=== PATIENT | female | born 1955 | race African-American/Black ===

== ENCOUNTER 2016-08-07 14:07 | Emergency (ER) | payer MEDICARE, MEDICAID ==
[2016-08-07] MEDS ORDERED: ONDANSETRON 4 MG TAB.RAPDIS SL ONE (14:23)
[2016-08-07] MEDS ORDERED: HYDROCODONE/ACETAMINOPHEN 5-325 MG TABLET PO ONE (14:23)
--- NOTE | 2016-08-07 14:24 | ER Document Report ---
ED Medical Screen (RME) - General Chief Complaint: Abdominal Pain Stated Complaint: ABDOMINAL PAIN, SORE THROAT Time Seen by Provider: 08/07/16 14:23 Mode of Arrival: Ambulatory Information source: Patient TRAVEL OUTSIDE OF THE [place] IN LAST 30 DAYS: No - HPI Patient complains to provider of: Abdominal pain with nausea and diarrhea Onset: Other - 4-5 days Onset/Duration: Persistent Quality of pain: Achy Notes: 08/07/16 14:23 Patient is a 61-year-old female presenting to the emergency room complaining of abdominal pain with nausea this been going on for for 5 days, she reports 2 episodes of diarrhea as well, denies any dysuria, no vomiting, no fever, no vaginal discharge or bleeding, states at home she tried taking Gas-X, as well as Tea and she even drank some vinegar in hopes to make her pain go away but has had no relief - Related Data Allergies/Adverse Reactions: latex [Latex] Allergy (Intermediate, Verified 08/07/16 14:21) Generalized Itching Sulfa (Sulfonamide Antibiotics) Allergy (Intermediate, Verified 08/07/16 14:21) Pruritis IVP Dye Allergy (Intermediate, Uncoded 08/07/16 14:21) Swelling of tongue Past Medical History - Past Medical History Cardiac Medical History: Reports: Hx Heart Attack - Silent [place], Hx Hypertension Denies: Hx Coronary Artery Disease Pulmonary Medical History: Reports: Hx Asthma, Hx Pneumonia Denies: Hx Bronchitis, Hx COPD Neurological Medical History: Reports: Hx Migraine. Denies: Hx Cerebrovascular Accident, Hx Seizures Endocrine Medical History: Reports: Hx Diabetes Mellitus Type 2 Renal/ Medical History: Denies: Hx Peritoneal Dialysis Musculoskeltal Medical History: Reports Hx Arthritis, Reports Hx Fibromyalgia Past Surgical History: Denies: Hx Hysterectomy, Hx Pacemaker - Immunizations Hx Diphtheria, Pertussis, Tetanus Vaccination: Yes Physical Exam - Vital signs Vitals: Temp Pulse Resp BP Pulse Ox 98.4 F 76 16 122/61 97 08/07/16 14:10 08/07/16 14:10 08/07/16 14:10 08/07/16 14:10 08/07/16 14:10 Course - Vital Signs Vital signs: Temp Pulse Resp BP Pulse Ox 98.4 F 76 16 122/61 97 08/07/16 14:10 08/07/16 14:10 08/07/16 14:10 08/07/16 14:10 08/07/16 14:10
[2016-08-07 14:39] LABS: APPEARANCE,URINE CLEAR; BILIRUBIN,URINE NEGATIVE (NEGATIVE); GLUCOSE, URINE >=500 mg/dL (NEGATIVE); KETONES,URINE NEGATIVE (NEGATIVE); LEUKOCYTE ESTERASE,URINE NEGATIVE (NEGATIVE); NITRITE,URINE NEGATIVE (NEGATIVE); PROTEIN,URINE NEGATIVE (NEGATIVE); URINE SPECIFIC GRAVITY 1.024; UROBILINOGEN,URINE NEGATIVE mg/dL (<2.0)
[2016-08-07 15:15] LABS: ABSOLUTE BASOPHILS # (AUTO) 0.1 10^3/uL (0.0-0.2); ABSOLUTE EOSINOPHILS # (AUTO) 0.2 10^3/uL (0.0-0.6); ABSOLUTE LYMPHOCYTES (AUTO) 3.3 10^3/uL (0.5-4.7); ABSOLUTE MONOCYTES (AUTO) 0.5 10^3/uL (0.1-1.4); ABSOLUTE NEUT (AUTO) 3.1 10^3/uL (1.7-8.2); EOSINOPHILS % (AUTO) 2.8 % (0-6); HEMATOCRIT 37.4 % (36.0-47.0); HEMOGLOBIN 11.8 g/dL (12.0-15.5); MEAN CORPUSCULAR HEMOGLOBIN 24.5 pg (27.0-33.4); MEAN CORPUSCULAR HGB CONC 31.6 g/dL (32.0-36.0); MEAN CORPUSCULAR VOLUME 77 fl (80-97); MONOCYTES % (AUTO) 6.5 % (3-13); RED BLOOD COUNT 4.82 10^6/uL (3.72-5.28); RED CELL DISTRIBUTION WIDTH 17.2 % (11.5-14.0); SEGMENTED NEUTROPHILS % (AUTO) 43.7 % (42-78); WHITE BLOOD COUNT 7.1 10^3/uL (4.0-10.5)
[2016-08-07 15:37] LABS: ALANINE AMINOTRANSFERASE 25 U/L (9-52); ALBUMIN 2.8 g/dL (3.5-5.0); ALKALINE PHOSPHATASE 55 U/L (38-126); ANION GAP 10 (5-19); ASPARTATE AMINO TRANSFERASE 22 U/L (14-36); BILIRUBIN,DIRECT 0.3 mg/dL (0.0-0.4); BILIRUBIN,TOTAL 0.4 mg/dL (0.2-1.3); BLOOD UREA NITROGEN 9 mg/dL (7-20); CARBON DIOXIDE 20 mmol/L (22-30); CHLORIDE 115 mmol/L (98-107); CREATININE RESULT 0.52 mg/dL (0.52-1.25); GLUCOSE 99 mg/dL (75-110); LIPASE 84.8 U/L (23-300); POTASSIUM 3.8 mmol/L (3.6-5.0); SODIUM 145.2 mmol/L (137-145); TOTAL PROTEIN 5.9 g/dL (6.3-8.2)
[2016-08-07 15:48] LABS: CALCIUM 6.9 mg/dL (8.4-10.2)
--- NOTE | 2016-08-07 16:42 | ER Document Report ---
ED GI/ - General Mode of Arrival: Ambulatory Information source: Patient TRAVEL OUTSIDE OF THE [place] IN LAST 30 DAYS: No <AJ LARA - Last Filed: 08/07/16 19:41> <HARLEY PETERS - Last Filed: 08/07/16 22:02> - General Chief Complaint: Abdominal Pain Stated Complaint: ABDOMINAL PAIN, SORE THROAT Time Seen by Provider: 08/07/16 14:23 Notes: 61-year-old post menopausal, DM, hypertensive, hypothyroid, non-smoker female complaining of lower quadrant pain that is intermittent and right flank pain that is intermittent with increased urine frequency since last week. Have nausea without vomiting. Diarrhea yesterday. Has had some chills and sweats for 2 days. No hx Ulcerative colitis, or diverticulitis. She had a normal colonoscopy several years ago. (AJ LARA) - Related Data Allergies/Adverse Reactions: latex [Latex] Allergy (Intermediate, Verified 08/07/16 14:21) Generalized Itching Sulfa (Sulfonamide Antibiotics) Allergy (Intermediate, Verified 08/07/16 14:21) Pruritis IVP Dye Allergy (Intermediate, Uncoded 08/07/16 14:21) Swelling of tongue Past Medical History - General Information source: Patient - Social History Smoking Status: Former Smoker Chew tobacco use (# tins/day): No Frequency of alcohol use: None Drug Abuse: None Lives with: Family Family History: Reviewed & Not Pertinent - Past Medical History Cardiac Medical History: Reports: Hx Heart Attack - Silent [place], Hx Hypertension Pulmonary Medical History: Reports: Hx Asthma, Hx Pneumonia Neurological Medical History: Reports: Hx Migraine Endocrine Medical History: Reports: Hx Diabetes Mellitus Type 2 Renal/ Medical History: Denies: Hx Peritoneal Dialysis Musculoskeltal Medical History: Reports Hx Arthritis, Reports Hx Fibromyalgia Past Surgical History: Reports: Hx Cardiac Catheterization, Hx Genitourinary Surgery - bladder tacking, c section - Immunizations Hx Diphtheria, Pertussis, Tetanus Vaccination: Yes Hx Pneumococcal Vaccination: 02/20/10 <AJ LARA - Last Filed: 08/07/16 19:41> Review of Systems - Review of Systems Constitutional: No symptoms reported EENT: No symptoms reported Cardiovascular: No symptoms reported Respiratory: No symptoms reported Gastrointestinal: See HPI Genitourinary: No symptoms reported Female Genitourinary: No symptoms reported Musculoskeletal: No symptoms reported Skin: No symptoms reported Hematologic/Lymphatic: No symptoms reported Neurological/Psychological: No symptoms reported <AJ LARA - Last Filed: 08/07/16 19:41> Physical Exam - Vital signs Interpretation: Normal - General General appearance: Appears well, Alert In distress: None - HEENT Head: Normocephalic, Atraumatic Eyes: Normal Conjunctiva: Normal Pupils: PERRL Pharynx: Normal Neck: Supple. No: Lymphadenopathy - Respiratory Respiratory status: No respiratory distress Chest status: Nontender Breath sounds: Normal Chest palpation: Normal - Cardiovascular Rhythm: Regular Heart sounds: Normal auscultation Murmur: No - Abdominal Inspection: Normal Distension: No distension Bowel sounds: Normal Tenderness: Tender - right lower pelvic. No: McBurney's point Organomegaly: No organomegaly. No: Hepatomegaly, Splenomegaly - Back Back: Normal, Tender - right flank - Extremities General upper extremity: Normal inspection, Nontender, Normal color, Normal ROM , Normal temperature General lower extremity: Normal inspection, Nontender, Normal color, Normal ROM , Normal temperature, Normal weight bearing. No: Nguyen's sign - Neurological Neuro grossly intact: Yes Cognition: Normal Orientation: AAOx4 Geetha Coma Scale Eye Opening: Spontaneous [place] Coma Scale Verbal: Oriented Geetha Coma Scale Motor: Obeys Commands [place] Coma Scale Total: 15 Speech: Normal Motor strength normal: LUE, RUE, LLE, RLE Sensory: Normal - Psychological Associated symptoms: Normal affect, Normal mood - Skin Skin Temperature: Warm Skin Moisture: Dry Skin Color: Normal Skin irregularity: negative: Rash <AJ LARA - Last Filed: 08/07/16 19:41> Course - Laboratory Result Diagrams: 08/07/16 15:03 08/07/16 15:03 <AJ LARA - Last Filed: 08/07/16 19:41> - Laboratory Result Diagrams: 08/07/16 15:03 08/07/16 15:03 <HARLEY PETERS - Last Filed: 08/07/16 22:02> - Re-evaluation Re-evalutation: 08/07/16 17:45 CT scan showed a 3.6 cm mass on her uterus which radiologist recommends getting any ultrasound which I have done and I will explain this to the patient. 08/07/16 19:00 Shows fibroids that correlate with the CT finding. No change since 200608/07/16 19:41 Dr. Peters examined the patient upon my request since she is pot tender although the tenderness seems to be in the right groin at this time and hurt more with hip movement and getting up and walking. I believe that this is musculoskeletal and Dr. Peters agrees. Been visiting here driving and taking care of her grandchildren. She feels like she has been more physically active but no specific injury that she can remember to her back or hip. She has been told that she has arthritis in the past. I advised her to return to the emergency room for any increased pain, fever, nausea, vomiting, diarrhea. She can take Tylenol and use heat to her sore areas. (AJ LARA) 08/07/16 22:01 I did personally seen and examined this patient, I did review pertinent parts of the history with the patient. She is complaining of some right-sided abdominal pain however on further examination she does indicate her right groin where there is no hernia on examination. She is tender palpation along the right inguinal fold, no adenopathy is noted. She is able to bear weight without difficulty although pain worsens with ambulation. At present I feel this may be musculoskeletal in nature, I agree with acetaminophen and warm compresses for pain. Patient will return for fevers or new or concerning symptoms. (HARLEY PETERS) - Vital Signs Vital signs: Temp Pulse Resp BP Pulse Ox 98.2 F 67 14 114/79 97 08/07/16 19:59 08/07/16 19:59 08/07/16 19:59 08/07/16 19:59 08/07/16 19:59 - Laboratory Laboratory results interpreted by me: 08/07/16 08/07/16 08/07/16 14:25 15:03 15:03 Hgb 11.8 L MCV 77 L MCH 24.5 L MCHC 31.6 L RDW 17.2 H Lymphocytes % 46.0 H Sodium 145.2 H Chloride 115 H Carbon Dioxide 20 L Calcium 6.9 L* Total Protein 5.9 L Albumin 2.8 L Urine Glucose (UA) >=500 H Discharge <AJ LARA - Last Filed: 08/07/16 19:41> <HARLEY PETERS - Last Filed: 08/07/16 22:02> - Discharge Clinical Impression: right groin pain, uterine fibroids, abdominal pain Low back pain Qualifiers: Chronicity: acute Back pain laterality: right Sciatica presence: without sciatica Qualified Code(s): M54.5 - Low back pain Condition: Good Disposition: HOME, SELF-CARE Instructions: Abdominal Pain ([facility]), Low Back Pain ([facility]), Acetaminophen, Warm Packs ([facility]) Additional Instructions: warm compress to sore areas you have urterine fibroids tylenol Return to the emergency room for increased pain, fever, nausea, vomiting, diarrhea, or any concerns Please complete the patient satisfaction survey if you get one, and return it.. If you do not receive a survey, then you can go to the [facility] website, [email or web address] and place your comments about your very good care. Thank you very much. It was a pleasure being your medical provider today.
--- NOTE | 2016-08-07 17:07 | RADIOLOGY REPORT (SQ) ---
EXAM DESCRIPTION: CT LTD RENAL STONE PROTOCOL ON COMPLETED DATE/TIME: 08/07/2016 4:28 pm REASON FOR STUDY: right flank and RLQ pain COMPARISON: None. TECHNIQUE: CT scan of the abdomen and pelvis performed without intravenous or oral contrast. Images reviewed with lung, soft tissue, and bone windows. Reconstructed coronal and sagittal MPR images revi ewed. All images stored on PACS. All CT scanners at this facility use dose modulation, iterative reconstruction, and/or weight based d osing when appropriate to reduce radiation dose to as low as reasonably achievable (ALARA). [facility]: Dose Right [facility]: CareDose [facility]: Dose Right [facility]: Teradose 4D [facility]: OurStage RADIATION DOSE: 13.45mGy. LIMITATIONS: None. FINDINGS: LOWER CHEST: No significant findings. No nodules or infiltrates. NON-CONTRASTED LIVER, SPLEEN, ADRENALS: Evaluation limited by lack of IV contrast. No identified sign ificant masses. PANCREAS: No masses. No peripancreatic inflammatory changes. GALLBLADDER: No identified stones by CT criteria. No inflammatory changes to suggest cholecystitis. RIGHT KIDNEY AND URETER: No suspicious masses. Assessment limited by lack of IV contrast. No signif icant calcifications. Multiple calcifications are noted within at vessel and adjacent to the ureter but appear to be vascular calcifications. No hydronephrosis or hydroureter. LEFT KIDNEY AND URETER: No suspicious masses. Assessment limited by lack of IV contrast. Lower pole cyst. No significant calcifications. No hydronephrosis or hydroureter. AORTA AND RETROPERITONEUM: No aneurysm. No retroperitoneal masses or adenopathy. BOWEL AND PERITONEAL CAVITY: No obvious masses or inflammatory changes. No free fluid. APPENDIX: Not visualized. No inflammatory changes seen the right lower quadrant. No dilated blind-e nding fluid-filled loops of bowel. PELVIS, BLADDER, AND ABDOMINAL WALL:There is a 2.3 cm rounded lesion seen along the anterior surface of the uterus slightly to the right with central hypo attenuation. This could represent a fibroid wi th cystic degeneration or other lesion. This is not fully evaluated on this study. No pelvic adenop athy identified. Urinary bladder is unremarkable by CT. Phleboliths noted in the pelvis. BONES: No significant findings. OTHER: No other significant finding. IMPRESSION: There is a 3.6 cm lesion seen along the anterior surface of the uterus on the right of u nknown clinical significance. This not well evaluated on this study. This could represent a cystic there degenerative fibroid off the no other mass lesion cannot be entirely excluded. Consider MRI (n onemergent setting) or ultrasound evaluation of this lesion/area. No other acute abnormality identif ied on this noncontrast study of the abdomen pelvis. TECHNICAL DOCUMENTATION: JOB ID: [id number] Quality ID # [id number]: Final reports with documentation of one or more dose reduction techniques (e.g., Au tomated exposure control, adjustment of the mA and/or kV according to patient size, use of iterative reconstruction technique) 2010 [employer]- All Rights Reserved
--- NOTE | 2016-08-07 18:33 | RADIOLOGY REPORT (SQ) ---
EXAM DESCRIPTION: U/S NON-OB PELVIS TV W/O DOP COMPLETED DATE/TIME: 08/07/2016 6:11 pm REASON FOR STUDY: mass on right side uterus COMPARISON: CT abdomen pelvis 08/07/2016, 04/25/2011 Pelvic ultrasound 09/15/2006 TECHNIQUE: Dynamic and static grayscale images acquired of the pelvis via transvaginal approach and recorded on PACS. Additional selected color Doppler and spectral images recorded. LIMITATIONS: None. FINDINGS: UTERUS: Uterus is 8.6 x 6 x 5.5 cm in size. There are several fibroids, 4 cm anterior fun chaya fibroid likely correlates with the findings on CT earlier today. A 3.2 x 4 cm fibroid is present in the rightward uterine fundus, a 1.4 cm fibroid is seen in the ventral uterine body. ENDOMETRIAL STRIPE: Not well seen CERVIX: No nabothian cysts. RIGHT OVARY: No abnormal masses. Right ovary 3.5 x 3.3 x 1.7 cm in size. RIGHT OVARY DOPPLER: Normal arterial vascular flow without evidence for torsion. LEFT OVARY: Not visualized due to adnexal bowel gas LEFT OVARY DOPPLER: Normal arterial vascular flow without evidence for torsion. FREE FLUID: None noted. OTHER: No other significant finding. IMPRESSION: Uterine fundal fibroids similar compared to 2006. TECHNICAL DOCUMENTATION: JOB ID: [id number] [employer]- All Rights Reserved
[2016-08-07 20:06] VITALS: BP 114/79
== END 2016-08-07 20:05 | disposition home or self-care (01) ==
LOC: ER 14:07
DX: D25.9 Leiomyoma of uterus, unspecified (principal); R11.0 Nausea; R35.0 Frequency of micturition; I10 Essential (primary) hypertension; E03.9 Hypothyroidism, unspecified; R68.83 Chills (without fever); M54.5 Low back pain; R61 Generalized hyperhidrosis; E11.9 Type 2 diabetes mellitus without complications; I25.2 Old myocardial infarction; J45.909 Unspecified asthma, uncomplicated; Z91.040 Latex allergy status; Z91.041 Radiographic dye allergy status; Z88.0 Allergy status to penicillin; Z87.891 Personal history of nicotine dependence
CPT/HCPCS: 99284; 36415; 87086; 83690; 85025; 80053; 81001; 76830; 76380; A9270 ×2; S0119

== ENCOUNTER 2019-07-16 11:11 | Emergency (ER) | payer OTHER, MEDICAID ==
[2019-07-16 11:51] LABS: ABSOLUTE BASOPHILS # (AUTO) 0.1 10^3/uL (0.0-0.2); ABSOLUTE EOSINOPHILS # (AUTO) 0.1 10^3/uL (0.0-0.6); ABSOLUTE LYMPHOCYTES (AUTO) 2.7 10^3/uL (0.5-4.7); ABSOLUTE MONOCYTES (AUTO) 0.6 10^3/uL (0.1-1.4); BASOPHILS % (AUTO) 0.8 % (0-2); EOSINOPHILS % (AUTO) 1.4 % (0-6); HEMOGLOBIN 11.7 g/dL (12.0-15.5); MEAN CORPUSCULAR HEMOGLOBIN 28.4 pg (27.0-33.4); MEAN CORPUSCULAR HGB CONC 33.5 g/dL (32.0-36.0); MEAN CORPUSCULAR VOLUME 85 fl (80-97); MONOCYTES % (AUTO) 7.4 % (3-13); PLATELET COUNT 395 10^3/uL (150-450); RED BLOOD COUNT 4.12 10^6/uL (3.72-5.28); RED CELL DISTRIBUTION WIDTH 16.3 % (11.5-14.0); SEGMENTED NEUTROPHILS % (AUTO) 54.4 % (42-78); TOTAL CELLS COUNTED % (AUTO) 100 %; WHITE BLOOD COUNT 7.4 10^3/uL (4.0-10.5)
[2019-07-16 11:54] LABS: ANION GAP 7 (5-19); BLOOD UREA NITROGEN 14 mg/dL (7-20); CALCIUM 8.9 mg/dL (8.4-10.2); CARBON DIOXIDE 27 mmol/L (22-30); CHLORIDE 104 mmol/L (98-107); GLUCOSE 298 mg/dL (75-110)
[2019-07-16 12:06] LABS: NT PRO BNP 33 pg/mL (<125)
[2019-07-16 12:09] LABS: TROPONIN I < 0.012 ng/mL
[2019-07-16 12:32] VITALS: BP 126/73
--- NOTE | 2019-07-16 13:07 | RADIOLOGY REPORT (SQ) ---
EXAM DESCRIPTION: CHEST SINGLE VIEW IMAGES COMPLETED DATE/TIME: 07/16/2019 12:52 pm REASON FOR STUDY: sob COMPARISON: 09/11/2014 EXAM PARAMETERS: NUMBER OF VIEWS: One view. TECHNIQUE: Single frontal radiographic view of the chest acquired. RADIATION DOSE: NA LIMITATIONS: None. FINDINGS: LUNGS AND PLEURA: No opacities, masses or pneumothorax. No pleural effusion. MEDIASTINUM AND HILAR STRUCTURES: No masses. Contour normal. HEART AND VASCULAR STRUCTURES: Heart normal in size. Normal vasculature. BONES: No acute findings. HARDWARE: None in the chest. OTHER: No other significant finding. IMPRESSION: NO ACUTE RADIOGRAPHIC FINDING IN THE CHEST. TECHNICAL DOCUMENTATION: JOB ID: [id number] 2010 [employer]- All Rights Reserved Reading location - IP/workstation name: [email or web address]
--- NOTE | 2019-07-17 07:25 | EKG REPORT ---
SEVERITY:- ABNORMAL ECG - SINUS RHYTHM LEFT VENTRICULAR HYPERTROPHY : Confirmed by: Ariel Appiah MD 17-Jul-2019 07:24:40
== END 2019-07-16 14:00 | disposition home or self-care (01) ==
LOC: ER 11:11
DX: R06.02 Shortness of breath (principal); M79.89 Other specified soft tissue disorders; R06.01 Orthopnea; Z88.2 Allergy status to sulfonamides; Z88.8 Allergy status to other drugs, medicaments and biological substances; I25.2 Old myocardial infarction; I10 Essential (primary) hypertension
CPT/HCPCS: 36415; 71045; 80048; 83880; 84484; 85025; 93005; 93010; 99285